=== PATIENT | female | born 1960 | race Caucasian/White ===

== ENCOUNTER 2016-09-16 14:48 | Inpatient (IN) | payer OTHER ==
[~2016-09-16] VITALS: Ht 167.6 cm; Wt 75.4 kg
[2016-09-16 18:10] LABS: HEMATOCRIT 40.8 % (36.0-46.0); MCH 31.8 PG (29.0-34.0); MCHC 33.6 G/DL (30.0-36.0); MCV 94.7 FL (83-99); MEAN PLAT.VOLUME 9.8 uM^3 (9.5-12.4); PLATELET COUNT 246 K/uL (156-360); RBC DIS.WIDTH-CV 11.8 % (11.8-14.6); RBC DIS.WIDTH-SD 41.2 % (39-53); RED BLOOD COUNT 4.31 M/uL (3.80-5.20)
[2016-09-16] MEDS ORDERED: LISINOPRIL-HCT1 EACH PO (18:16)
[2016-09-16] MEDS ORDERED: EFFEXOR XR150 MG PO (18:16)
[2016-09-16 18:17] LABS: WHITE BLOOD COUNT 9.3 K/uL (4.1-10.2)
[2016-09-16] MEDS ORDERED: LANSOPRAZOLE30 MG PO (18:17)
[2016-09-16] MEDS ORDERED: CLONAZEPAM0.5 MG PO (18:17)
[2016-09-16] MEDS ORDERED: HYDROCODON-ACE1 EAC9 PO (18:18)
[2016-09-16] MEDS ORDERED: ATENOLOL25 MG PO (18:19)
[2016-09-16] MEDS ORDERED: MIRALAX17 GM PO (18:19)
[2016-09-16 18:21] LABS: CHLORIDE 101 mEq/L (99-109); POTASSIUM 4.3 mEq/L (3.7-5.4); SODIUM 135 mEq/L (136-147)
[2016-09-16 18:22] LABS: GLUCOSE 98 mg/dL (70-99)
[2016-09-16 18:24] LABS: ANION GAP 8 MEQ/L (2-14)
[2016-09-16 18:26] LABS: SERUM ETHYL ALCOHOL < 10 mg/dL
[2016-09-16 18:27] LABS: GFR ESTIMATE (CALCULATED) > 59 mL/min/
[2016-09-16 18:28] LABS: UREA NITROGEN (BUN) 14 mg/dL (9-23)
[2016-09-16 18:30] LABS: SALICYLATE < 5.0 MG/DL (15-30)
[2016-09-16 19:09] LABS: ADD MEDTOX COMMENT Y; AMPHETAMINE NEGATIVE (500 ng/mL); BARBITURATES NEGATIVE (200 ng/mL); BENZODIAZEPINES NEGATIVE (150 ng/mL); COCAINE NEGATIVE (150 ng/mL); INTERNAL CONTROLS VALID? YES; METHADONE NEGATIVE (200 ng/mL); METHAMPHETAMINE NEGATIVE (500 ng/mL); OPIATES (MORPHINE) PRESUMPTIVE POSITIVE (100 ng/mL); OXYCODONE NEGATIVE (100 ng/mL); PHENCYCLIDINE NEGATIVE (25 ng/mL); PROPOXYPHENE NEGATIVE (300 ng/mL); THC CANNABINOIDS NEGATIVE (50 ng/mL); TRICYCLIC ANTIDEPRESSANTS NEGATIVE (300 ng/mL)
[2016-09-16 19:50] VITALS: BP 122/76
[2016-09-16 19:51] VITALS: BP 122/73
[2016-09-17 08:26] VITALS: BP 94/54
[2016-09-17 15:24] VITALS: BP 115/59
[2016-09-18 09:36] VITALS: BP 125/69
[2016-09-18 15:58] VITALS: BP 108/62
[2016-09-19 08:08] VITALS: BP 125/75
[2016-09-19 15:26] VITALS: BP 121/62
[2016-09-20 08:20] VITALS: BP 121/64
[2016-09-20 15:39] VITALS: BP 102/69
[2016-09-21 07:46] VITALS: BP 109/59
[2016-09-21] MEDS ORDERED: PHENAZOPYRIDIN100 MG PO (11:30)
[2016-09-21 11:49] LABS: ADD MIUA? YES; BILIRUBIN NEGATIVE; BLOOD NEGATIVE; COLOR YELLOW ((YELLOW)); GLUCOSE (STRIP) NEGATIVE; KETONES NEGATIVE; LEUKOCYTES NEGATIVE; NITRITE NEGATIVE; PROTEIN (STRIP) NEGATIVE; SPECIFIC GRAVITY 1.019 (1.000-1.030); UROBILINOGEN 0.2 MG/DL (0.2-1.0)
[2016-09-21 12:33] LABS: EPITHELIAL CELLS 1+ /HPF; MUCUS 1+ /LPF; RED BLOOD CELLS NONE SEEN /HPF (0-5); WHITE BLOOD CELLS 0-5 /HPF (0-5)
[2016-09-21 12:34] LABS: BACTERIA NONE SEEN /HPF; CASTS NONE SEEN /LPF; CRYSTALS NONE SEEN
== END 2016-09-21 13:30 | disposition home or self-care (01) | DRG 885 ==
LOC: EME 14:48 → 1WEST 17:45 → EDOF 17:45 → 1WEST 19:42
PROVIDERS: Emergency Medicine; Psychiatry & Neurology Psychiatry
DX: F33.2 Major depressive disorder, recurrent severe without psychotic features (principal); R45.851 Suicidal ideations; N23 Unspecified renal colic; F60.3 Borderline personality disorder; I10 Essential (primary) hypertension; K21.9 Gastro-esophageal reflux disease without esophagitis; G89.29 Other chronic pain; M54.9 Dorsalgia, unspecified; F17.210 Nicotine dependence, cigarettes, uncomplicated; Z88.2 Allergy status to sulfonamides; Z88.1 Allergy status to other antibiotic agents
CPT/HCPCS: 80048; 81003; 84999; 85027; 87086; 90839; 97150 GO; 97166 GO; 99281; 99285; G0480; Q0177